=== PATIENT | male | born 1940 | race Caucasian/White ===

== ENCOUNTER → 2016-08-06 | Outpatient (CLI) | payer OTHER, MEDICARE | LOC: BHFA 10:45 | PROVIDERS: ATTEND Internal Medicine Cardiovascular Disease | DX: I72.9 Aneurysm of unspecified site (principal) ==

== ENCOUNTER → 2016-10-08 | Outpatient (CLI) | payer OTHER, MEDICARE | LOC: BMCIMAGING 10:58 | PROVIDERS: ATTEND Physician Assistant | DX: M81.0 Age-related osteoporosis without current pathological fracture (principal); S32.2XXD Fracture of coccyx, subsequent encounter for fracture with routine healing ==

== ENCOUNTER → 2016-10-30 | Outpatient (CLI) | payer OTHER, MEDICARE | LOC: BHFA 11:00 | PROVIDERS: ATTEND Internal Medicine Cardiovascular Disease | DX: I25.10 Atherosclerotic heart disease of native coronary artery without angina pectoris (principal); I34.0 Nonrheumatic mitral (valve) insufficiency; I10 Essential (primary) hypertension; E78.5 Hyperlipidemia, unspecified ==

== ENCOUNTER 2017-04-18 09:30 | Emergency (ER) | payer OTHER, MEDICARE ==
[2017-04-18] MEDS ORDERED: NS 1,000 ML IV ONE (09:34)
[2017-04-18] MEDS ORDERED: ADENOSINE 6 MG/2 ML VIAL IVP ONE ×2 (09:35→09:49)
--- NOTE | 2017-04-18 09:43 | CPEKG ---
Heart Rate: 158 RR Interval: 380 P-R Interval: 204 QRSD Interval: 86 QT Interval: 288 QTC Interval: 467 P [place]: 0 QRS [place]: 80 T Wave [place]: 36 EKG Severity - ABNORMAL ECG - EKG Impression: SUPRAVENTRICULAR TACHYCARDIA EKG Impression: LOW VOLTAGE IN FRONTAL LEADS EKG Impression: ST DEPRESSION, PROBABLY RATE RELATED Electronically Signed By: Sidney Short 18-Apr-2017 14:50:02
--- NOTE | 2017-04-18 09:43 | EDPHY ---
HPI/HX/ROS/PE/MDM Narrative: CHIEF COMPLAINT: SVT HPI: The patient is a 76 y/o male arriving from his PCP's office with SVT. He has a history of SVT requiring cardioversion with adenosine in the past and has considered an ablation with his clinical counselor. Yesterday he noticed his blood pressure was low at 70/50 so he increased his fluid intake thinking he was dehydrated. He woke up around 05:30 and felt normal, but an hour later, about 4 hours ago, he started to feel dizzy so he went to his PCP's office for evaluation where they found him in SVT. He can't feel an elevated heart rate and denies chest pain, syncope, dyspnea. He continues to feel dizzy and lightheaded currently. No recent illness or trauma. REVIEW OF SYSTEMS: Aside from elements discussed in the HPI, a comprehensive 10-point review of systems was reviewed and is negative. PMH: 1. SVT 2. "preclinical asymptomatic CAD" per cardiology consult note 04/26/11 3. OCD - Adderall 4. Renal cell carcinoma status post nephrectomy 5. Prostate cancer 6. Right ankle surgery 7. Parathyroidectomy. SOCIAL HISTORY: From [facility] [place]. Retired, former real estate rep. Nonsmoker. PCP: Dr. Cruz. Prior medical records reviewed including ED visit and cardiology note 04/26/11 for SVT. PHYSICAL EXAM: General:Patient is alert, resting comfortably. HR 160, BP 92/80. ENT:Eyes are normal to inspection. ENT inspection normal. Neck: Normal inspection. Full range of motion. Respiratory:No respiratory distress. Breath sounds normal bilaterally. Cardiovascular: Tachycardic regular rate and rhythm. Strong peripheral pulses. Normal cap refill. Abdomen:The abdomen is nontender to palpation. There are no peritoneal signs. Back: Normal to inspection. No tenderness to palpation. Skin: Normal color. No rash. Warm and dry. Extremities: Normal appearance. Full range of motion. Neuro: Oriented x3. Normal motor function. Normal sensory function. ED Course: This is a 76 y/o male with a history of SVT requiring cardioversion with adenosine who presents in SVT from his PCP's office and complaining of dizziness. He denies other symptoms. Current heart rate around 160 and hypotensive 81/64. Plan for IV, labs, EKG, and cardioversion with adenosine. The 12 lead EKG was interpreted by myself. SVT rate 158. See hard copy and/or "tracemaster" electronic copy for interpretation. 0946: 6mg IV adenosine administered. No change in rhythm. 0948: 12mg IV adenosine administered. Successful conversion to sinus rhythm rate 74. The 12 lead EKG was interpreted by myself. Sinus mechanism rate 73 with PVCs. See hard copy and/or "tracemaster" electronic copy for interpretation. Troponin is negative. Critical care time spent by me, Dr. Short, exclusively with this patient was 35 minutes, exclusive of PA time and exclusive of procedures. The organ system at risk was cardiovascular. Time spent in serial assessments of the patient, consideration of cardioversion options, EKG interpretation. - Data Points Laboratory Results: Laboratory Results 04/18/17 09:45 04/18/17 09:45 04/18/17 04/18/17 09:45 09:45 WBC 7.74 10^3/uL 10^3/uL (3.80-9.50) RBC 4.39 10^6/uL L 10^6/uL (4.40-6.38) Hgb 14.4 g/dL g/dL (13.7-17.5) Hct 41.6 % % (40.0-51.0) MCV 94.8 fL fL (81.5-99.8) MCH 32.8 pg pg (27.9-34.1) MCHC 34.6 g/dL g/dL (32.4-36.7) RDW 14.3 % % (11.5-15.2) Plt Count 181 10^3/uL 10^3/uL (150-400) MPV 11.4 fL fL (8.7-11.7) Neut % (Auto) 64.0 % % (39.3-74.2) Lymph % (Auto) 24.8 % % (15.0-45.0) [place] % (Auto) 9.6 % % (4.5-13.0) Eos % (Auto) 0.6 % % (0.6-7.6) Baso % (Auto) 0.6 % % (0.3-1.7) Nucleat RBC Rel Count 0.0 % % (0.0-0.2) Absolute Neuts (auto) 4.95 10^3/uL 10^3/uL (1.70-6.50) Absolute Lymphs (auto) 1.92 10^3/uL 10^3/uL (1.00-3.00) Absolute Monos (auto) 0.74 10^3/uL 10^3/uL (0.30-0.80) Absolute Eos (auto) 0.05 10^3/uL 10^3/uL (0.03-0.40) Absolute Basos (auto) 0.05 10^3/uL 10^3/uL (0.02-0.10) Absolute Nucleated RBC 0.00 10^3/uL 10^3/uL (0-0.01) Immature Gran % 0.4 % % (0.0-1.1) Immature Gran # 0.03 10^3/uL 10^3/uL (0.00-0.10) Sodium 140 mEq/L mEq/L (135-145) Potassium 5.1 mEq/L mEq/L (3.5-5.2) Chloride 101 mEq/L mEq/L (97-110) Carbon Dioxide 26 mEq/l mEq/l (22-31) Anion Gap 13 mEq/L mEq/L (8-16) BUN 38 mg/dL H mg/dL (7-23) Creatinine 2.0 mg/dL H mg/dL (0.7-1.3) Estimated GFR 33 Glucose 122 mg/dL H mg/dL (70-100) Calcium 9.5 mg/dL mg/dL (8.5-10.4) Troponin I 0.031 ng/mL ng/mL (0.000-0.034) Medications Given: Discontinued Medications Adenosine (Adenosine) 6 mg IVP EDNOW ONE Stop: 04/18/17 09:36 Last Admin: 04/18/17 09:45 Dose: 6 mg Adenosine (Adenosine) 12 mg IVP EDNOW ONE Stop: 04/18/17 09:50 Last Admin: 04/18/17 09:49 Dose: 12 mg Sodium Chloride (Ns) 1,000 mls @ 0 mls/hr IV EDNOW ONE; Wide Open PRN Reason: Protocol Stop: 04/18/17 09:35 Last Admin: 04/18/17 09:51 Dose: 1,000 mls General Time Seen by Provider: 04/18/17 09:33 Initial Vital Signs: Initial Vital Signs Temperature (C) 37.1 C 04/18/17 09:39 Heart Rate 156 H 04/18/17 09:39 Respiratory Rate 16 04/18/17 09:39 Blood Pressure 81/64 L 04/18/17 09:39 O2 Sat (%) 96 04/18/17 09:39 O2 Delivery Mode Room Air Allergies/Adverse Reactions: No Known Allergies Allergy (Verified 04/18/17 09:42) Home Medications: Medication Instructions Recorded Amphet Asp and D/Amphet [Adderall] 10 mg PO DAILY 04/26/11 Aspirin 325 mg PO 04/26/11 Tamsulosin HCl [Flomax] 0.4 mg PO DAILY8 04/26/11 Departure - Departure Disposition: Home, Routine, Self-Care Clinical Impression: SVT (supraventricular tachycardia) Condition: Good Instructions: Supraventricular Tachycardia (ED) Additional Instructions: Follow up with your clinical counselor in the next 1-2 days. Return to the ED for recurrent symptoms or other worsening of condition. Referrals: Marlon Cruz PA [Primary Care Provider] - As per Instructions Kisha Wilson MD [Medical Doctor] - As per Instructions Report Scribed for: Sidney Short Report Scribed by: María Collins Date of Report: 04/18/17 Time of Report: 09:43 Physician Review and Approval Statement: Portions of this note were transcribed by an ED scribe. I personally performed the history, physical exam, and medical decision making; and confirm the accuracy of the information in the transcribed note.
[2017-04-18] MEDS ORDERED: ADENOSINE 6 MG/2 ML VIAL ONE (09:44)
--- NOTE | 2017-04-18 09:54 | CPEKG ---
Heart Rate: 73 RR Interval: 822 P-R Interval: 204 QRSD Interval: 90 QT Interval: 372 QTC Interval: 410 P [place]: 68 QRS [place]: 60 T Wave [place]: 47 EKG Severity - ABNORMAL ECG - EKG Impression: SINUS RHYTHM EKG Impression: VENTRICULAR TRIGEMINY EKG Impression: LOW VOLTAGE IN FRONTAL LEADS Electronically Signed By: Sidney Short 18-Apr-2017 14:49:56
[2017-04-18 10:01] LABS: PLATELET COUNT 181 10^3/uL (150-400)
--- NOTE | 2017-04-18 10:39 | CPEKG ---
Heart Rate: 66 RR Interval: 909 P-R Interval: 152 QRSD Interval: 94 QT Interval: 384 QTC Interval: 403 P [place]: 48 QRS [place]: 42 T Wave [place]: 39 EKG Severity - BORDERLINE ECG - EKG Impression: SINUS RHYTHM EKG Impression: LOW VOLTAGE IN FRONTAL LEADS EKG Impression: BORDERLINE ST ELEVATION, ANTEROLATERAL LEADS Electronically Signed By: Sidney Short 18-Apr-2017 14:47:52
[2017-04-18 10:48] VITALS: BP 105/70; PULSE 70; RESP 16; TEMP 97.5; O2SAT 93
== END 2017-04-18 10:48 | disposition home or self-care (01) ==
DX: I47.1 Supraventricular tachycardia (principal); E86.9 Volume depletion, unspecified; Z85.46 Personal history of malignant neoplasm of prostate
CPT/HCPCS: 93005; 96361; 96374; 99291; J0153

== ENCOUNTER 2017-05-12 10:16 | Emergency (ER) | payer OTHER, MEDICARE ==
--- NOTE | 2017-05-12 10:25 | CPEKG ---
Heart Rate: 150 RR Interval: 400 QRSD Interval: 88 QT Interval: 312 QTC Interval: 493 QRS [place]: 84 T Wave [place]: 37 EKG Severity - ABNORMAL ECG - EKG Impression: SUPRAVENTRICULAR TACHYCARDIA EKG Impression: VENTRICULAR PREMATURE COMPLEX EKG Impression: BORDERLINE RIGHT AXIS DEVIATION EKG Impression: LOW VOLTAGE IN FRONTAL LEADS EKG Impression: ST DEPRESSION, PROBABLY RATE RELATED Electronically Signed By: Osorio Ross 12-May-2017 10:42:55
[2017-05-12] MEDS ORDERED: ADENOSINE 6 MG/2 ML VIAL ONE (10:28)
[2017-05-12] MEDS ORDERED: ADENOSINE 6 MG/2 ML VIAL IVP ONE (10:33)
[2017-05-12] MEDS ORDERED: NS 500 ML IV ONE (10:39)
--- NOTE | 2017-05-12 10:42 | EDPHY ---
H & P Time Seen by Provider: 05/12/17 10:21 HPI/ROS: CHIEF COMPLAINT: Dizziness HISTORY OF PRESENT ILLNESS: Patient has a history of SVT and was cardioverted with adenosine in our emergency department April 18 of this year. He presents today with dizziness since 7:00 a.m. And racing heart rate with initial blood pressure in the 70s. Does not have chest pain or shortness of breath or actual fainting. No recent illnesses. Scheduled to see Dr. Wren early May for consideration of ablation. No recent illnesses and no syncope. He is currently on Bystolic 2.5 mg a day. REVIEW OF SYSTEMS: Eye: no change in vision ENT: no sore throat Cardiac: HPI Pulmonary: no cough or SOB Abdomen: no vomiting, diarrhea, abdominal pain Musculoskeletal: no back pain Skin: no rash Neuro: no headache Constitutional: no fever : no urinary symptoms A comprehensive 10 point review of systems is otherwise negative aside from elements mentioned in the history of present illness. PAST MEDICAL HISTORY: Includes SVT, renal cell carcinoma status post nephrectomy, prostate cancer, right ankle surgery, parathyroidectomy. Social history: Nonsmoker, sees [facility] General Appearance: Alert and conversant, cooperative. Eyes: No scleral icterus. ENT, Mouth: Normal mucous membranes. Respiratory: Normal respiratory effort, breath sounds equal, lungs are clear to auscultation. Cardiovascular: Regular rate and rhythm. Tachycardic Gastrointestinal: Abdomen is soft and non tender. Neurological: Alert, face symmetric, normal motor and sensory in extremities. Skin: Warm and dry, no rashes. Musculoskeletal: No peripheral edema. Psychiatric: Not agitated. Emergency Department course/MDM: EKG reviewed shows probable SVT but is slower rate than usual because of being on Bystolic. 12 mg IV adenosine given with recurrence of sinus rhythm. Normal saline IV fluid bolus. Electrolytes checked and call placed to his primary care doctor. Per Dr. Elam no change in medications. 1152: Asymptomatic, sinus rhythm, stable for discharge. Smoking Status: Unknown if ever smoked Constitutional: Initial Vital Signs Temperature (C) 36.3 C 05/12/17 10:21 Heart Rate 155 H 05/12/17 10:21 Respiratory Rate 20 05/12/17 10:21 Blood Pressure 70/56 L 05/12/17 10:21 O2 Sat (%) 96 05/12/17 10:21 O2 Delivery Mode Room Air Allergies/Adverse Reactions: No Known Allergies Allergy (Verified 05/12/17 10:18) Home Medications: Medication Instructions Recorded Amphet Asp and D/Amphet [Adderall] 10 mg PO DAILY 04/26/11 Aspirin 325 mg PO 04/26/11 Tamsulosin HCl [Flomax] 0.4 mg PO DAILY8 04/26/11 Bystolic 05/12/17 Zetia 05/12/17 Medical Decision Making - Diagnostics EKG Interpretation: 12-lead EKG interpreted by me; official reading is in trace master. My interpretation is SVT at 150 beats per minute 12-lead EKG interpreted by me; official reading is in trace master. My interpretation is sinus rhythm at 61 after adenosine. Differential Diagnosis: Differential diagnosis considered for narrow complex tachycardia including but not limited to various causes of sinus tachycardia, SVT, atrial flutter and atrial fibrillation. Consult/Admit Bed Type: [facility], no change in medications 1058 - Data Points Laboratory Results: Laboratory Results 05/12/17 10:20 05/12/17 10:20 05/12/17 05/12/17 10:20 10:20 WBC 6.63 10^3/uL 10^3/uL (3.80-9.50) RBC 4.66 10^6/uL 10^6/uL (4.40-6.38) Hgb 14.8 g/dL g/dL (13.7-17.5) Hct 45.0 % % (40.0-51.0) MCV 96.6 fL fL (81.5-99.8) MCH 31.8 pg pg (27.9-34.1) MCHC 32.9 g/dL g/dL (32.4-36.7) RDW 14.3 % % (11.5-15.2) Plt Count 189 10^3/uL 10^3/uL (150-400) MPV 12.5 fL H fL (8.7-11.7) Neut % (Auto) 56.6 % % (39.3-74.2) Lymph % (Auto) 31.4 % % (15.0-45.0) [place] % (Auto) 9.7 % % (4.5-13.0) Eos % (Auto) 1.2 % % (0.6-7.6) Baso % (Auto) 0.9 % % (0.3-1.7) Nucleat RBC Rel Count 0.0 % % (0.0-0.2) Absolute Neuts (auto) 3.76 10^3/uL 10^3/uL (1.70-6.50) Absolute Lymphs (auto) 2.08 10^3/uL 10^3/uL (1.00-3.00) Absolute Monos (auto) 0.64 10^3/uL 10^3/uL (0.30-0.80) Absolute Eos (auto) 0.08 10^3/uL 10^3/uL (0.03-0.40) Absolute Basos (auto) 0.06 10^3/uL 10^3/uL (0.02-0.10) Absolute Nucleated RBC 0.00 10^3/uL 10^3/uL (0-0.01) Immature Gran % 0.2 % % (0.0-1.1) Immature Gran # 0.01 10^3/uL 10^3/uL (0.00-0.10) Sodium 142 mEq/L mEq/L (135-145) Potassium 4.4 mEq/L mEq/L (3.5-5.2) Chloride 104 mEq/L mEq/L (97-110) Carbon Dioxide 21 mEq/l L mEq/l (22-31) Anion Gap 17 mEq/L H mEq/L (8-16) BUN 27 mg/dL H mg/dL (7-23) Creatinine 1.7 mg/dL H mg/dL (0.7-1.3) Estimated GFR 39 Glucose 101 mg/dL H mg/dL (70-100) Calcium 9.4 mg/dL mg/dL (8.5-10.4) Troponin I < 0.012 ng/mL ng/mL (0.000-0.034) Medications Given: Discontinued Medications Adenosine (Adenosine) 12 mg IVP EDNOW ONE Stop: 05/12/17 10:34 Last Admin: 05/12/17 10:33 Dose: 12 mg Sodium Chloride (Ns) 500 mls @ 0 mls/hr IV EDNOW ONE; Wide Open PRN Reason: Protocol Stop: 05/12/17 10:40 Last Admin: 05/12/17 10:42 Dose: 500 mls Departure - Departure Disposition: Home, Routine, Self-Care Clinical Impression: Supraventricular tachycardia Condition: Good Instructions: Supraventricular Tachycardia (ED) Referrals: Terence Guerra MD [Primary Care Provider] - As per Instructions
--- NOTE | 2017-05-12 10:45 | CPEKG ---
Heart Rate: 61 RR Interval: 984 P-R Interval: 180 QRSD Interval: 96 QT Interval: 428 QTC Interval: 431 P [place]: 83 QRS [place]: 64 T Wave [place]: 54 EKG Severity - OTHERWISE NORMAL ECG - EKG Impression: SINUS RHYTHM EKG Impression: LOW VOLTAGE IN FRONTAL LEADS Electronically Signed By: Osorio Ross 12-May-2017 10:54:58
[2017-05-12 11:18] LABS: PLATELET COUNT 189 10^3/uL (150-400)
[2017-05-12 12:00] VITALS: BP 100/76; PULSE 73; RESP 18; TEMP 98.1; O2SAT 97
== END 2017-05-12 12:01 | disposition home or self-care (01) ==
DX: I47.1 Supraventricular tachycardia (principal); E86.9 Volume depletion, unspecified; Z79.82 Long term (current) use of aspirin; Z85.46 Personal history of malignant neoplasm of prostate
CPT/HCPCS: 93005; 96374; 99284; J0153

== ENCOUNTER 2017-06-11 18:45 | Emergency (ER) | payer OTHER, MEDICARE ==
[2017-06-11 18:51] VITALS: TEMP 97.7
[2017-06-11] MEDS ORDERED: ADENOSINE 6 MG/2 ML VIAL ONE (18:54)
--- NOTE | 2017-06-11 18:56 | CPEKG ---
Heart Rate: 147 RR Interval: 408 QRSD Interval: 88 QT Interval: 304 QTC Interval: 476 QRS [place]: 79 T Wave [place]: 51 EKG Severity - ABNORMAL ECG - EKG Impression: SVT EKG Impression: LOW VOLTAGE IN FRONTAL LEADS EKG Impression: ST DEPRESSION, PROBABLY RATE RELATED EKG Impression: BORDERLINE PROLONGED QT INTERVAL Electronically Signed By: Víctor Candelaria 11-Jun-2017 21:42:47
--- NOTE | 2017-06-11 19:12 | CPEKG ---
Heart Rate: 81 RR Interval: 741 P-R Interval: 208 QRSD Interval: 94 QT Interval: 320 QTC Interval: 372 P [place]: 81 QRS [place]: 64 T Wave [place]: 61 EKG Severity - OTHERWISE NORMAL ECG - EKG Impression: SINUS RHYTHM EKG Impression: LOW VOLTAGE IN FRONTAL LEADS Electronically Signed By: Víctor Candelaria 11-Jun-2017 21:42:22
[2017-06-11] MEDS ORDERED: NS 1,000 ML IV ONE (19:13)
[2017-06-11] MEDS ORDERED: ADENOSINE 6 MG/2 ML VIAL IVP ONE ×2 (19:13)
[2017-06-11 19:17] VITALS: O2SAT 97
--- NOTE | 2017-06-11 19:20 | EDPHY ---
H & P Time Seen by Provider: 06/11/17 18:58 HPI/ROS: Chief complaint. Rapid heart rate HPI. Patient is 76-year-old male with history of SVT. He has been seen twice in our department for SVT last being May 12. He had an evaluation about a week ago for an ablation. 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 Patient is unsure when he went into the fast heart rate today. He was showing a friend and cardiac mina on his telephone and found that he had a heart rate of about 150. Patient has been previously successfully treated with adenosine. He denies chest pain or shortness of breath. He is not sick. No unusual leg pain or swelling ROS Constitutional. no fever/chills, no weakness Eyes. no problems with vision ENT. no sore throat, no nasal drainage Cardiovascular. No chest pain but fast heart rate Respiratory. no shortness of breath, no cough Abdominal. no abdominal pain, no nausea/vomiting, no diarrhea . no problems urinating MS. no calf pain/swelling, no neck/back pain, no joint pain Skin. no rash Lymph. no swollen glands Neuro. no headache, no dizziness, no difficulty walking or with speech Past Medical/Surgical History: Past medical history SVT, WPW, renal cell cancer, hyperparathyroid, right nephrectomy Social History: , nonsmoker, no alcohol Smoking Status: Never smoked Physical Exam: General Appearance: Alert well-developed male mild distress vital signs show initial heart rate of 157 Eyes: Pupils equal and round no pallor or injection. ENT, Mouth: Mucous membranes are moist. Respiratory: There are no retractions, lungs are clear to auscultation. Cardiovascular: Regular rate and rhythm. Tachycardia Gastrointestinal: Abdomen is soft and nontender, no masses, bowel sounds normal. Neurological: Awake and alert, sensory and motor exams grossly normal. Skin: Warm and dry, no rashes. Musculoskeletal: Neck is supple nontender. Extremities symmetrical, full range of motion. Psychiatric: Patient is oriented X 3, there is no agitation. Constitutional: Initial Vital Signs Temperature (C) 36.5 C 06/11/17 18:49 Heart Rate 157 H 06/11/17 18:49 Respiratory Rate 18 06/11/17 18:49 Blood Pressure 124/86 H 06/11/17 18:49 O2 Sat (%) 96 06/11/17 18:49 O2 Delivery Mode Room Air Allergies/Adverse Reactions: No Known Allergies Allergy (Verified 06/11/17 18:49) Home Medications: Medication Instructions Recorded Aspirin 325 mg PO 04/26/11 Tamsulosin HCl [Flomax] 0.4 mg PO DAILY8 04/26/11 Bystolic 05/12/17 Zetia 05/12/17 Medical Decision Making - Diagnostics EKG Interpretation: EKG interpreted by me shows probable SVT. Does appear that this could be atrial fibrillation however it is very regular. Normal axis. QRS is normal. There is no significant ST elevation or depression. The rate is 147 EKG 2. Shows normal sinus rhythm normal interval and axis. QRS is normal there is no significant ST elevation or depression. No arrhythmia. The rate is 81 Procedures: IV normal saline Monitor. Adenosine 6 mg IV without effect Adenosine 12 mg IV slow does the patient's heart rate back to normal sinus rhythm with a rate of 81 ED Course/Re-evaluation: Patient is observed in the emergency department and remains stable. Re-evaluation and discussion again at 7:50 p.m.. Patient and I discussed laboratory evaluation, treatment plan including criteria for return and importance of follow-up and further evaluation. He expresses understanding and agreement Differential Diagnosis: I considered atrial fibrillation versus SVT. No evidence for acute coronary syndrome. Rhythm was controlled and converted to normal sinus rhythm using adenosine. I think that this is SVT - Data Points Laboratory Results: Laboratory Results 06/11/17 19:00 06/11/17 19:00 06/11/17 06/11/17 19:00 19:00 WBC 7.17 10^3/uL 10^3/uL (3.80-9.50) RBC 4.27 10^6/uL L 10^6/uL (4.40-6.38) Hgb 13.6 g/dL L g/dL (13.7-17.5) Hct 40.4 % % (40.0-51.0) MCV 94.6 fL fL (81.5-99.8) MCH 31.9 pg pg (27.9-34.1) MCHC 33.7 g/dL g/dL (32.4-36.7) RDW 14.4 % % (11.5-15.2) Plt Count 206 10^3/uL 10^3/uL (150-400) MPV 11.8 fL H fL (8.7-11.7) Neut % (Auto) 50.3 % % (39.3-74.2) Lymph % (Auto) 38.2 % % (15.0-45.0) [place] % (Auto) 9.6 % % (4.5-13.0) Eos % (Auto) 1.4 % % (0.6-7.6) Baso % (Auto) 0.4 % % (0.3-1.7) Nucleat RBC Rel Count 0.0 % % (0.0-0.2) Absolute Neuts (auto) 3.60 10^3/uL 10^3/uL (1.70-6.50) Absolute Lymphs (auto) 2.74 10^3/uL 10^3/uL (1.00-3.00) Absolute Monos (auto) 0.69 10^3/uL 10^3/uL (0.30-0.80) Absolute Eos (auto) 0.10 10^3/uL 10^3/uL (0.03-0.40) Absolute Basos (auto) 0.03 10^3/uL 10^3/uL (0.02-0.10) Absolute Nucleated RBC 0.00 10^3/uL 10^3/uL (0-0.01) Immature Gran % 0.1 % % (0.0-1.1) Immature Gran # 0.01 10^3/uL 10^3/uL (0.00-0.10) Sodium 142 mEq/L mEq/L (135-145) Potassium 4.3 mEq/L mEq/L (3.5-5.2) Chloride 103 mEq/L mEq/L (97-110) Carbon Dioxide 25 mEq/l mEq/l (22-31) Anion Gap 14 mEq/L mEq/L (8-16) BUN 35 mg/dL H mg/dL (7-23) Creatinine 1.5 mg/dL H mg/dL (0.7-1.3) Estimated GFR 46 Glucose 102 mg/dL H mg/dL (70-100) Calcium 9.2 mg/dL mg/dL (8.5-10.4) Troponin I < 0.012 ng/mL ng/mL (0.000-0.034) Medications Given: Discontinued Medications Adenosine (Adenosine) 6 mg IVP EDNOW ONE Stop: 06/11/17 19:14 Last Admin: 06/11/17 19:14 Dose: 6 mg Adenosine (Adenosine) 12 mg IVP EDNOW ONE Stop: 06/11/17 19:14 Last Admin: 06/11/17 19:14 Dose: 12 mg Sodium Chloride (Ns) 1,000 mls @ 0 mls/hr IV ONCE ONE PRN Reason: Wide Open Stop: 06/11/17 19:14 Last Admin: 06/11/17 19:14 Dose: 1,000 mls Departure - Departure Disposition: Home, Routine, Self-Care Clinical Impression: Supraventricular tachycardia Condition: Good Instructions: Aqyec-Huaumkshp-Hpgyw Syndrome (ED), Supraventricular Tachycardia (ED) Additional Instructions: Drink plenty of fluids and stay hydrated. Continue your regular medications as prescribed. Return for further symptoms. Call Dr. Jacobo tomorrow to discuss follow-up and further medication if necessary. Referrals: Terence Guerra MD [Primary Care Provider] - As per Instructions Antonio Jacobo MD [Medical Doctor] - 1-2 days without fail
[2017-06-11 19:25] LABS: PLATELET COUNT 206 10^3/uL (150-400)
[2017-06-11 20:07] VITALS: BP 118/74; PULSE 68; RESP 18
== END 2017-06-11 20:07 | disposition home or self-care (01) ==
DX: I47.1 Supraventricular tachycardia (principal); Z85.528 Personal history of other malignant neoplasm of kidney; Z79.82 Long term (current) use of aspirin
CPT/HCPCS: 93005; 96361; 96374; 99284; J0153

== ENCOUNTER 2017-07-03 09:18 | Emergency (ER) | payer OTHER, MEDICARE ==
[2017-07-03] MEDS ORDERED: ADENOSINE 6 MG/2 ML VIAL IVP ONE (09:28)
[2017-07-03] MEDS ORDERED: NS 1,000 ML IV ONE (09:28)
--- NOTE | 2017-07-03 09:28 | CPEKG ---
Heart Rate: 149 RR Interval: 403 QRSD Interval: 86 QT Interval: 300 QTC Interval: 473 QRS [place]: 87 T Wave [place]: 49 EKG Severity - ABNORMAL ECG - EKG Impression: SUPRAVENTRICULAR TACHYCARDIA EKG Impression: RUN OF VENTRICULAR PREMATURE COMPLEXES EKG Impression: ST DEPRESSION, PROBABLY RATE RELATED Electronically Signed By: Clarence Polk 03-Jul-2017 09:37:12
--- NOTE | 2017-07-03 09:30 | EDPHY ---
H & P Time Seen by Provider: 07/03/17 09:25 HPI/ROS: CHIEF COMPLAINT: Palpitations HISTORY OF PRESENT ILLNESS: The patient presents to the ED with a recurrent SVT that began earlier today. The patient is scheduled to get an ablation next week. He has been having increasing frequencies of palpitations and SVT over the past year. Patient typically receives adenosine which results in appropriate cardioversion. The patient denies any chest pain or shortness of breath. He denies fever, cough or congestion. He denies additional acute complaints. REVIEW OF SYSTEMS: A comprehensive 10 point review of systems is otherwise negative aside from elements mentioned in the history of present illness. Source: Patient Exam Limitations: No limitations - Medical/Surgical History Hx Asthma: No Hx Chronic Respiratory Disease: No Hx Diabetes: No Hx Cardiac Disease: Yes Hx Renal Disease: No Hx Cirrhosis: No Hx Alcoholism: No Hx HIV/AIDS: No Hx Splenectomy or Spleen Trauma: No Other PMH: SVT-had Adenosine, Prostate Ca, Parathyroid, R Nephrectomy.afib - Social History Smoking Status: Never smoked - Physical Exam Exam: General Appearance: Alert, no distress Eyes: Pupils equal and round no pallor or injection ENT, Mouth: Mucous membranes moist Respiratory: There are no retractions, lungs are clear to auscultation Cardiovascular: Tachycardic, regular Gastrointestinal: Abdomen is soft and nontender, no masses, bowel sounds normal Neurological: A&O, normal motor function, normal sensory exam, normal cranial nerves Skin: Warm and dry, no rashes Musculoskeletal: Neck is supple nontender Extremities: symmetrical, full range of motion Constitutional: Initial Vital Signs Temperature (C) 36.5 C 07/03/17 09:26 Heart Rate 153 H 07/03/17 09:26 Respiratory Rate 18 07/03/17 09:26 Blood Pressure 98/57 L 07/03/17 09:26 O2 Sat (%) 91 L 07/03/17 09:26 O2 Delivery Mode Room Air Allergies/Adverse Reactions: No Known Allergies Allergy (Verified 06/11/17 18:49) Home Medications: Medication Instructions Recorded Aspirin 325 mg PO 04/26/11 Tamsulosin HCl [Flomax] 0.4 mg PO DAILY8 04/26/11 Bystolic 05/12/17 Zetia 05/12/17 Lipitor 07/03/17 Medical Decision Making - Diagnostics EKG Interpretation: EKG: Complete interpretation has been separately recorded in the [employer] archive. Summary impression: Supraventricular tachycardia, rate 149 ED Course/Re-evaluation: I reviewed the patient's past medical records. I discussed this case with his primary care provider Marlon Cruz. The patient was placed on a manager cardiac. He had an IV established - he did receive 1 L of normal saline for mild hypotension noted in his primary care provider's office. He was noted to be in recurrent SVT with a rate of 149. The patient received 12 mg of adenosine. The patient was chemically cardioverted without complication in the emergency department. The patient was kept on a manager cardiac. He had no recurrent hypotension or tachycardia following his chemical cardioversion. 9:50 p.m.: Patient's blood pressure is 110/70, heart rate is 62 and a sinus rhythm. The patient has no acute complaints. He will be discharged home. Differential Diagnosis: Differential diagnosis considered includes atrial fibrillation, atrial flutter, SVT, ventricular tachycardia - Data Points Medications Given: Discontinued Medications Adenosine (Adenosine) 12 mg IVP EDNOW ONE Stop: 07/03/17 09:29 Last Admin: 07/03/17 09:31 Dose: 12 mg Sodium Chloride (Ns) 1,000 mls @ 0 mls/hr IV EDNOW ONE; Wide Open PRN Reason: Protocol Stop: 07/03/17 09:29 Last Admin: 07/03/17 09:35 Dose: 1,000 mls Departure - Departure Disposition: Home, Routine, Self-Care Clinical Impression: Supraventricular tachycardia Condition: Good Instructions: Supraventricular Tachycardia (ED) Additional Instructions: 1. Please return to the ED for recurrent palpitations, chest pain, shortness of breath or other concerns. 2. Please follow up with your primary care provider and nanotechnologist as scheduled. Referrals: Terence Guerra MD [Primary Care Provider] - As per Instructions
[2017-07-03 10:03] VITALS: BP 105/70
== END 2017-07-03 10:09 | disposition home or self-care (01) ==
DX: I47.1 Supraventricular tachycardia (principal); E86.9 Volume depletion, unspecified; Z85.46 Personal history of malignant neoplasm of prostate; Z79.82 Long term (current) use of aspirin
CPT/HCPCS: 93005; 96374; 99284; J0153

== ENCOUNTER 2017-07-10 21:41 | Emergency (ER) | payer OTHER, MEDICARE ==
[2017-07-10] MEDS ORDERED: ADENOSINE 6 MG/2 ML VIAL IVP ONE (21:49)
--- NOTE | 2017-07-10 21:49 | EDPHY ---
H & P Time Seen by Provider: 07/10/17 21:46 HPI/ROS: CHIEF COMPLAINT: Arrhythmia HISTORY OF PRESENT ILLNESS: The patient presents the ED with recurrent SVT that began 1 hr prior to arrival. The patient is scheduled to undergo cardiac ablation on Saturday. He has been off of his Bystolic. This is the patient's 4th emergency department visit in the past 10 weeks for recurrent SVT. The patient denies any chest pain, shortness of breath, asymmetric calf pain or swelling. He typically comfortable 12 mg of adenosine. REVIEW OF SYSTEMS: A comprehensive 10 point review of systems is otherwise negative aside from elements mentioned in the history of present illness. Source: Patient Exam Limitations: No limitations - Medical/Surgical History Hx Asthma: No Hx Chronic Respiratory Disease: No Hx Diabetes: No Hx Cardiac Disease: Yes Hx Renal Disease: No Hx Cirrhosis: No Hx Alcoholism: No Hx HIV/AIDS: No Hx Splenectomy or Spleen Trauma: No Other PMH: SVT-had Adenosine, Prostate Ca, Parathyroid, R Nephrectomy.afib - Social History Smoking Status: Never smoked - Physical Exam Exam: General Appearance: Alert, no distress Eyes: Pupils equal and round no pallor or injection ENT, Mouth: Mucous membranes moist Respiratory: There are no retractions, lungs are clear to auscultation Cardiovascular: Tachycardic, regular, rate 150 Gastrointestinal: Abdomen is soft and nontender, no masses, bowel sounds normal Neurological: 5/5 strength all 4 extremities Skin: Warm and dry, no rashes Musculoskeletal: Neck is supple nontender Extremities: symmetrical, full range of motion, no asymmetric calf pain or swelling Constitutional: Initial Vital Signs Temperature (C) 36.2 C 07/10/17 22:05 Heart Rate 162 H 07/10/17 22:05 Respiratory Rate 20 07/10/17 22:05 O2 Sat (%) 93 07/10/17 22:05 O2 Delivery Mode Room Air Allergies/Adverse Reactions: No Known Allergies Allergy (Verified 06/11/17 18:49) Home Medications: Medication Instructions Recorded Aspirin 325 mg PO 04/26/11 Tamsulosin HCl [Flomax] 0.4 mg PO DAILY8 04/26/11 Zetia 05/12/17 Lipitor 07/03/17 Medical Decision Making - Diagnostics EKG Interpretation: EKG: Complete interpretation has been separately recorded in the [employer] archive. Summary impression: SVT, rate 152 Post chemical cardioversion EKG: Complete interpretation has been separately recorded in the [employer] archive. Summary impression: Sinus rhythm, rate 83 ED Course/Re-evaluation: I reviewed the patient's past medical records. He is hemodynamically stable upon arrival. The patient is noted to be in a recurrent SVT. The patient received 12 mg of IV adenosine. The patient was successfully chemically cardioverted in the ED. There is nothing to suggest ischemia or a metabolic source of his arrhythmia. 10:15 p.m.: The patient is noted to be in a normal sinus rhythm and will be discharged home. He will follow up with electrophysiology is scheduled on Saturday. Differential Diagnosis: Differential diagnosis considered includes atrial fibrillation, atrial flutter, SVT, ventricular tachycardia - Data Points Medications Given: Discontinued Medications Adenosine (Adenosine) 12 mg IVP EDNOW ONE Stop: 07/10/17 21:50 Last Admin: 07/10/17 22:03 Dose: 12 mg Departure - Departure Disposition: Home, Routine, Self-Care Clinical Impression: Supraventricular tachycardia Condition: Good Instructions: Supraventricular Tachycardia (ED) Additional Instructions: 1. Please follow-up with your django developer as scheduled on Saturday. 2. Return to the ED for any recurrent arrhythmia, chest pain, difficulty breathing or other concerns.
--- NOTE | 2017-07-10 21:54 | CPEKG ---
Heart Rate: 152 RR Interval: 395 QRSD Interval: 90 QT Interval: 300 QTC Interval: 477 QRS Chandler: 82 T Wave Chandler: -6 EKG Severity - ABNORMAL ECG - EKG Impression: ATRIAL FIBRILLATION WITH RAPID V-RATE EKG Impression: BORDERLINE RIGHT AXIS DEVIATION EKG Impression: ST DEPRESSION, PROBABLY RATE RELATED Electronically Signed By: Clarence Polk 10-Jul-2017 23:24:10
[2017-07-10 22:38] VITALS: BP 112/76
--- NOTE | 2017-07-11 09:22 | CPEKG ---
Heart Rate: 83 RR Interval: 723 P-R Interval: 196 QRSD Interval: 94 QT Interval: 368 QTC Interval: 433 P Percival: 75 QRS Percival: 57 T Wave Percival: 54 EKG Severity - NORMAL ECG - EKG Impression: SINUS RHYTHM EKG Impression: Low voltage standard leads EKG Impression: Possible left atrial abnormality EKG Impression: Resolution of atrial fibrillation since July 10, 2017, 21:52 Electronically Signed By: Víctor Shepard 11-Jul-2017 17:52:08
== END 2017-07-10 22:39 | disposition home or self-care (01) ==
DX: I47.1 Supraventricular tachycardia (principal); Z79.82 Long term (current) use of aspirin; Z85.46 Personal history of malignant neoplasm of prostate
CPT/HCPCS: 93005; 96374; 99284; J0153

== ENCOUNTER → 2018-01-01 | Outpatient (CLI) | payer OTHER, MEDICARE | LOC: BHLMT 08:30 | PROVIDERS: ATTEND Internal Medicine Cardiovascular Disease | DX: I47.1 Supraventricular tachycardia (principal); I34.1 Nonrheumatic mitral (valve) prolapse; I25.10 Atherosclerotic heart disease of native coronary artery without angina pectoris | CPT/HCPCS: 93306-PO ==

== ENCOUNTER 2018-01-02 08:11 | Day surgery (SDC) | payer OTHER, MEDICARE ==
--- NOTE | 2018-01-02 08:31 | EDPHY ---
H & P Stated Complaint: abnormal Echo, asked to come in by PCP,asymptomatic Time Seen by Provider: 01/02/18 08:30 HPI/ROS: CHIEF COMPLAINT: Referred to ED for abnormal echocardiogram HISTORY OF PRESENT ILLNESS: The patient is referred to the emergency department by his internist medical doctor md after an abnormal echocardiogram was performed yesterday. The patient has a history of atrial fibrillation which was treated successfully with ablation. The patient is currently not anticoagulated. The patient reportedly has a possible LV thrombus noted on his echocardiogram yesterday. The patient denies any chest pain or shortness of breath. The patient denies any additional acute complaints such as fever, cough or congestion. REVIEW OF SYSTEMS: A comprehensive 10 point review of systems is otherwise negative aside from elements mentioned in the history of present illness. Source: Patient Exam Limitations: No limitations - Medical/Surgical History Hx Asthma: No Hx Chronic Respiratory Disease: No Hx Diabetes: No Hx Cardiac Disease: Yes Hx Renal Disease: No Hx Cirrhosis: No Hx Alcoholism: No Hx HIV/AIDS: No Hx Splenectomy or Spleen Trauma: No Other PMH: SVT-had Adenosine, Prostate Ca, Parathyroid, R Nephrectomy.afib, ablation - Social History Smoking Status: Never smoked - Physical Exam Exam: General Appearance: Alert, no distress Eyes: Pupils equal and round no pallor or injection ENT, Mouth: Mucous membranes moist Respiratory: There are no retractions, lungs are clear to auscultation Cardiovascular: Regular rate and rhythm Gastrointestinal: Abdomen is soft and nontender, no masses, bowel sounds normal Neurological: 5/5 strength all 4 extremities Skin: Warm and dry, no rashes Musculoskeletal: Neck is supple nontender Extremities: symmetrical, full range of motion Constitutional: Initial Vital Signs Temperature (C) 36.3 C 01/02/18 08:27 Heart Rate 83 01/02/18 08:27 Respiratory Rate 16 01/02/18 08:27 Blood Pressure 134/89 H 01/02/18 08:27 O2 Sat (%) 92 01/02/18 08:27 O2 Delivery Mode Room Air Allergies/Adverse Reactions: No Known Allergies Allergy (Verified 06/11/17 18:49) Home Medications: Medication Instructions Recorded Aspirin 325 mg PO 04/26/11 Tamsulosin HCl [Flomax] 0.4 mg PO DAILY8 04/26/11 Zetia 05/12/17 Lipitor 07/03/17 Medical Decision Making - Diagnostics EKG Interpretation: EKG: Complete interpretation has been separately recorded in the [employer] archive. Summary impression: Sinus rhythm, rate 64 ED Course/Re-evaluation: The patient presents to the ED after he was noted to have a possible LV thrombus noted on his echocardiogram yesterday. The patient has been NPO since midnight. The patient has no acute complaints. He is currently in a normal sinus rhythm. Dr. Antonio Jacobo from Cardiology was notified. He is making arrangements to have a transesophageal echocardiogram performed today. The patient was evaluated by Dr. Antonio Jacobo in the ED. He will take him for a KELLY. Depending on the findings the patient may be admitted for observation. Differential Diagnosis: Differential diagnosis considered includes recurrent atrial fibrillation, LV thrombus - Data Points Laboratory Results: Laboratory Results 01/02/18 08:50 01/02/18 08:50 01/02/18 01/02/18 01/02/18 09:00 08:50 08:50 WBC 6.41 10^3/uL 10^3/uL (3.80-9.50) RBC 4.48 10^6/uL 10^6/uL (4.40-6.38) Hgb 14.2 g/dL g/dL (13.7-17.5) Hct 42.3 % % (40.0-51.0) MCV 94.4 fL fL (81.5-99.8) MCH 31.7 pg pg (27.9-34.1) MCHC 33.6 g/dL g/dL (32.4-36.7) RDW 13.9 % % (11.5-15.2) Plt Count 192 10^3/uL 10^3/uL (150-400) MPV 10.9 fL fL (8.7-11.7) Neut % (Auto) 56.5 % % (39.3-74.2) Lymph % (Auto) 30.6 % % (15.0-45.0) [place] % (Auto) 10.5 % % (4.5-13.0) Eos % (Auto) 1.6 % % (0.6-7.6) Baso % (Auto) 0.6 % % (0.3-1.7) Nucleat RBC Rel Count 0.0 % % (0.0-0.2) Absolute Neuts (auto) 3.63 10^3/uL 10^3/uL (1.70-6.50) Absolute Lymphs (auto) 1.96 10^3/uL 10^3/uL (1.00-3.00) Absolute Monos (auto) 0.67 10^3/uL 10^3/uL (0.30-0.80) Absolute Eos (auto) 0.10 10^3/uL 10^3/uL (0.03-0.40) Absolute Basos (auto) 0.04 10^3/uL 10^3/uL (0.02-0.10) Absolute Nucleated RBC 0.00 10^3/uL 10^3/uL (0-0.01) Immature Gran % 0.2 % % (0.0-1.1) Immature Gran # 0.01 10^3/uL 10^3/uL (0.00-0.10) PT 12.6 SEC SEC (12.0-15.0) INR 0.92 (0.83-1.16) APTT 31.2 SEC SEC (23.0-38.0) Sodium 140 mEq/L mEq/L (135-145) Potassium 4.7 mEq/L mEq/L (3.3-5.0) Chloride 103 mEq/L mEq/L (97-110) Carbon Dioxide 28 mEq/l mEq/l (22-31) Anion Gap 9 mEq/L mEq/L (6-14) BUN 26 mg/dL H mg/dL (7-23) Creatinine 1.4 mg/dL H mg/dL (0.7-1.3) Estimated GFR 49 Glucose 91 mg/dL mg/dL (70-100) Calcium 9.8 mg/dL mg/dL (8.5-10.4) Departure - Departure Disposition: To OP Cath/Surgery Clinical Impression: Possible LV thrombus, History of atrial fibrillation Condition: Good Referrals: Antonio Jacobo MD [Primary Care Provider] - As per Instructions
[2018-01-02 09:06] LABS: PLATELET COUNT 192 10^3/uL (150-400)
--- NOTE | 2018-01-02 09:06 | CPEKG ---
Test Reason : OPEN Blood Pressure : / mmHG Vent. Rate : 064 BPM Atrial Rate : 064 BPM P-R Int : 206 ms QRS Dur : 094 ms QT Int : 404 ms P-R-T Axes : 078 048 040 degrees QTc Int : 417 ms Sinus rhythm Atrial premature complexes Low voltage, extremity leads Confirmed by Clarence Pokl ([id number]) on 01/02/2018 9:05:48 AM Referred By: Confirmed By:Clarence Polk
[2018-01-02 09:26] LABS: INR 0.92 (0.83-1.16); PROTIME(PATIENT) 12.6 SEC (12.0-15.0)
[2018-01-02] MEDS ORDERED: MIDAZOLAM 2 MG/2 ML VIAL IVP ONE (10:42)
[2018-01-02] MEDS ORDERED: fentaNYL 100 MCG/2 ML INJ IVP ONE (10:42)
[2018-01-02] MEDS ORDERED: BENZOCAINE UNIT DOSE SPRAY HURRICAINE MM ONE (10:42)
[2018-01-02] MEDS ORDERED: NS 500 ML IV ONE (10:42)
[2018-01-02 10:47] VITALS: BP 131/85
[2018-01-02] MEDS ORDERED: fentaNYL 100 MCG/2 ML INJ ONE ×2 (12:53→13:26)
[2018-01-02] MEDS ORDERED: MIDAZOLAM 2 MG/2 ML VIAL ONE (12:53)
--- NOTE | 2018-01-02 13:09 | PDPROPOC ---
Sedation Plan of Care Sedation Plan of Care: vital signs stable, mental status noted, patient educated of risks, benefits, alternatives, patient can tolerate sedation ASA Classification: ASA 3 Planned drugs: fentanyl, midazolam Mallampati Score: Class 3 Mallampati Reference Image: Patient passed 3-3-2 rule?: Yes
--- NOTE | 2018-01-02 13:13 | PDGENHP ---
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 echo - History of Present Illness 77 year old patient followed for MVP and mitral regurgitation and SVT s/p ablation in June routine echo demonstrates echodensity in right atrium History Information - Allergies/Home Medication List Allergies/Adverse Reactions: No Known Allergies Allergy (Verified 06/11/17 18:49) Home Medications: Ezetimibe [Zetia 10 MG (*)] 10 mg PO Q2D@16 05/12/17 [Last Taken 12/31/17] Atorvastatin Calcium [Lipitor 10 mg (*)] 10 mg PO Q2D@16 07/03/17 [Last Taken ] ALPRAZolam [Xanax 0.5 MG (*)] 0.5 mg PO HS 01/02/18 [Last Taken 01/01/18] Allopurinol [Allopurinol 300 MG (RX)] 300 mg PO DAILY16 01/02/18 [Last Taken 01/09] Aspirin [Aspirin 81mg (*)] 81 mg PO DAILY16 01/02/18 [Last Taken 01/01/18] Cyanocobalamin [Vitamin B12 (*)] 1,000 mcg PO DAILY16 01/02/18 [Last Taken 01/01] Herbals/Supplements -Info Only 1 ea PO DAILY 01/02/18 [Last Taken Unknown] Tamsulosin HCl [Flomax 0.4 MG (*)] 0.4 mg PO DAILY16 01/02/18 [Last Taken ] I have personally reviewed and updated: family history, medical history, social history, surgical history - Past Medical History Additional medical history: see HPI - Social History Smoking Status: Never smoked Alcohol Use: Rarely Drug Use: None Review of Systems Review of Systems: Constitutional: Reports: no symptoms EENMT: Reports: no symptoms Cardiac: Reports: no symptoms. Denies: chest pain, edema, irregular heart rate , lightheadedness, palpitations, syncope Respiratory: Reports: no symptoms. Denies: cough, orthopnea Gastrointestinal: Reports: no symptoms Skin: Reports: no symptoms Neurological: Reports: no symptoms Hematologic/Lymphatic: Reports: no symptoms Immunologic/Allergy: Reports: no symptoms Physical Exam Physical Exam: heart regular rate rhythm with normal and clear lung rene. Temp Pulse Resp BP Pulse Ox 36.3 C 89 18 131/85 H 95 01/02/18 08:27 01/02/18 10:46 01/02/18 10:46 01/02/18 10:46 01/02/18 10:46 Constitutional: no apparent distress Eyes: PERRL, anicteric sclera, EOMI Ears, Nose, Mouth, Throat: moist mucous membranes Cardiovascular: regular rate and rhythym, systolic murmur Respiratory: no respiratory distress, no rales or rhonchi, clear to auscultation Gastrointestinal: normoactive bowel sounds, No ascites Genitourinary: no bladder fullness Skin: warm Lab Data & Imaging Review 01/02/18 08:50 01/02/18 08:50 WBC 6.41 10^3/uL (3.80-9.50) 01/02/18 08:50 RBC 4.48 10^6/uL (4.40-6.38) 01/02/18 08:50 Hgb 14.2 g/dL (13.7-17.5) 01/02/18 08:50 Hct 42.3 % (40.0-51.0) 01/02/18 08:50 MCV 94.4 fL (81.5-99.8) 01/02/18 08:50 MCH 31.7 pg (27.9-34.1) 01/02/18 08:50 MCHC 33.6 g/dL (32.4-36.7) 01/02/18 08:50 RDW 13.9 % (11.5-15.2) 01/02/18 08:50 Plt Count 192 10^3/uL (150-400) 01/02/18 08:50 MPV 10.9 fL (8.7-11.7) 01/02/18 08:50 Neut % (Auto) 56.5 % (39.3-74.2) 01/02/18 08:50 Lymph % (Auto) 30.6 % (15.0-45.0) 01/02/18 08:50 [place] % (Auto) 10.5 % (4.5-13.0) 01/02/18 08:50 Eos % (Auto) 1.6 % (0.6-7.6) 01/02/18 08:50 Baso % (Auto) 0.6 % (0.3-1.7) 01/02/18 08:50 Nucleat RBC Rel Count 0.0 % (0.0-0.2) 01/02/18 08:50 Absolute Neuts (auto) 3.63 10^3/uL (1.70-6.50) 01/02/18 08:50 Absolute Lymphs (auto) 1.96 10^3/uL (1.00-3.00) 01/02/18 08:50 Absolute Monos (auto) 0.67 10^3/uL (0.30-0.80) 01/02/18 08:50 Absolute Eos (auto) 0.10 10^3/uL (0.03-0.40) 01/02/18 08:50 Absolute Basos (auto) 0.04 10^3/uL (0.02-0.10) 01/02/18 08:50 Absolute Nucleated RBC 0.00 10^3/uL (0-0.01) 01/02/18 08:50 Immature Gran % 0.2 % (0.0-1.1) 01/02/18 08:50 Immature Gran # 0.01 10^3/uL (0.00-0.10) 01/02/18 08:50 PT 12.6 SEC (12.0-15.0) 01/02/18 09:00 INR 0.92 (0.83-1.16) 01/02/18 09:00 APTT 31.2 SEC (23.0-38.0) 01/02/18 09:00 Sodium 140 mEq/L (135-145) 01/02/18 08:50 Potassium 4.7 mEq/L (3.3-5.0) 01/02/18 08:50 Chloride 103 mEq/L (97-110) 01/02/18 08:50 Carbon Dioxide 28 mEq/l (22-31) 01/02/18 08:50 Anion Gap 9 mEq/L (6-14) 01/02/18 08:50 BUN 26 mg/dL (7-23) H 01/02/18 08:50 Creatinine 1.4 mg/dL (0.7-1.3) H 01/02/18 08:50 Estimated GFR 49 01/02/18 08:50 Glucose 91 mg/dL (70-100) 01/02/18 08:50 Calcium 9.8 mg/dL (8.5-10.4) 01/02/18 08:50 Assessment & Plan Assessment: history of SVT s/p ablation and also with 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 Needs KELLY risks benefits discussed. Plan: As above
[2018-01-02] MEDS ORDERED: IOPAMIDOL (ISOVUE 370) 100 ML BTL IV ONE (14:40)
== END 2018-01-02 17:40 | disposition home or self-care (01) ==
LOC: FCATH 09:55 → UNDOADMOB 09:59 → UNDODISOB 17:40 → FCATH 17:40
PROVIDERS: ATTEND Internal Medicine Cardiovascular Disease
PROC: B245ZZ4 Ultrasonography of Left Heart, Transesophageal (ICD-10-PCS; principal; 2018-01-02)
DX: I51.89 Other ill-defined heart diseases (principal); J84.10 Pulmonary fibrosis, unspecified; M41.84 Other forms of scoliosis, thoracic region
CPT/HCPCS: 71275; 93005; 99285; G0378; J2250; J3010; Q9967

== ENCOUNTER → 2018-01-28 | Outpatient (CLI) | payer OTHER, MEDICARE | LOC: FIMAGING 13:25 | PROVIDERS: ATTEND Internal Medicine Cardiovascular Disease | DX: R22.2 Localized swelling, mass and lump, trunk (principal); Z87.448 Personal history of other diseases of urinary system ==